=== PATIENT | female | born 1990 | race Caucasian/White ===

== ENCOUNTER 2017-02-19 06:10 | Emergency (ER) | payer OTHER ==
[~2017-02-19] VITALS: Ht 170.1 cm; Wt 125.6 kg
[~2017-02-19 06:10] MED LIST: AMOXIL500 MG PO; ATARAX25 MG PO; DICLEGIS DR 101 EACH PO; KEFLEX500 MG PO; MOTRIN800 MG PO; NKHM; NORCO 5-325 TA1 EACH PO; PEN-VEE K500 MG PO; PREDNISONE20 MG PO; PRENATAL1 TA3 PO; SEPTRA DS 800 M1 TAB PO; VICODIN 5/500 505 MG PO; VICODIN 500 MG-1 TAB PO
[2017-02-19 06:20] VITALS: BP 143/67
[2017-02-19 07:02] LABS: BASO % 0.4 % (0.0-1.0); EOS # 0.2 10*3/uL (0.0-0.4); EOS % 2.2 % (1.0-4.0); HEMATOCRIT 40.2 % (37.0-47.0); HEMOGLOBIN 13.1 g/dl (12.0-16.0); LYMPH # 2.6 10*3/uL (1.3-4.4); LYMPH % 28.9 % (27.0-41.0); MEAN CELL VOLUME 91.8 fl (81.0-99.0); MEAN CORPUSCULAR HGB 29.9 pg (27.0-31.0); MEAN CORPUSCULAR HGB CONC 32.6 g/dl (33.0-37.0); MEAN PLATELET VOLUME 10.5 fl (9.6-12.3); MONO # 0.5 10*3/uL (0.1-1.0); MONO % 5.6 % (3.0-9.0); NEUT # 5.7 10*3/uL (2.3-7.9); NEUT % 62.7 % (47.0-73.0); PLATELET COUNT AUTOMATED 300 10*3/uL (130-400); RED BLOOD COUNT 4.38 10*6/uL (4.10-5.10); RED CELL DISTRI WIDTH 12.7 % (0-14.5); WHITE BLOOD COUNT 9.1 10*3/uL (4.8-10.8)
[2017-02-19 07:17] LABS: ALBUMIN 3.7 gm/dl (3.1-4.5); ALKALINE PHOSPHATASE 98 U/L (45-117); BILIRUBIN, TOTAL 0.4 mg/dl (0.2-1.0); BUN 15 mg/dl (7-24); CARBON DIOXIDE 27 mmol/L (21-32); CHLORIDE 104 mmol/L (98-107); EST GLOM FILT AFRICAN AMERICAN > 60 ml/min; GLUCOSE 96 mg/dL (65-99); POTASSIUM 4.2 mmol/L (3.5-5.1); SGOT/AST 24 IU/L (3-35); SGPT/ALT 55 U/L (12-78); SODIUM 139 mmol/L (136-145); TOTAL PROTEIN 7.8 gm/dL (6.4-8.2)
[2017-02-19] MEDS ORDERED: Motrin,Rufen800 MG PO (08:25)
[2017-02-19] MEDS ORDERED: KEFLEX500 M1 PO (08:25)
[2017-02-19] MEDS ORDERED: BACTRIM DS 8001 TAB PO (08:25)
== END 2017-02-19 08:29 | disposition home or self-care (01) ==
LOC: ED 06:10
PROVIDERS: Emergency Medicine
DX: L02.31 Cutaneous abscess of buttock (principal)

== ENCOUNTER 2017-02-23 21:43 | Emergency (ER) | payer OTHER ==
[~2017-02-23] VITALS: Ht 170.1 cm; Wt 1259.6 kg
[~2017-02-23 21:43] MED LIST changes: +BACTRIM DS 8001 TAB PO; +KEFLEX500 M1 PO; +Motrin,Rufen800 MG PO
[2017-02-23 22:13] VITALS: BP 119/70
[2017-02-23 23:05] LABS: BASO % 0.3 % (0.0-1.0); EOS # 0.2 10*3/uL (0.0-0.4); EOS % 1.8 % (1.0-4.0); HEMATOCRIT 38.4 % (37.0-47.0); HEMOGLOBIN 12.7 g/dl (12.0-16.0); LYMPH # 1.2 10*3/uL (1.3-4.4); LYMPH % 11.8 % (27.0-41.0); MEAN CELL VOLUME 92.5 fl (81.0-99.0); MEAN CORPUSCULAR HGB 30.6 pg (27.0-31.0); MEAN CORPUSCULAR HGB CONC 33.1 g/dl (33.0-37.0); MEAN PLATELET VOLUME 10.1 fl (9.6-12.3); MONO # 0.5 10*3/uL (0.1-1.0); MONO % 4.8 % (3.0-9.0); NEUT # 8.3 10*3/uL (2.3-7.9); NEUT % 80.9 % (47.0-73.0); PLATELET COUNT AUTOMATED 346 10*3/uL (130-400); RED BLOOD COUNT 4.15 10*6/uL (4.10-5.10); RED CELL DISTRI WIDTH 12.7 % (0-14.5); WHITE BLOOD COUNT 10.3 10*3/uL (4.8-10.8)
[2017-02-23 23:14] LABS: PROTHROMBIN TIME 10.5 SECONDS (9.0-12.4)
[2017-02-23 23:22] LABS: ALBUMIN 3.5 gm/dl (3.1-4.5); ALKALINE PHOSPHATASE 176 U/L (45-117); BILIRUBIN, TOTAL 0.5 mg/dl (0.2-1.0); BUN 12 mg/dl (7-24); CARBON DIOXIDE 26 mmol/L (21-32); CHLORIDE 104 mmol/L (98-107); CKMB 0.7 ng/ml (0.5-3.6); CPK 93 U/L (26-192); EST GLOM FILT AFRICAN AMERICAN > 60 ml/min; GLUCOSE 96 mg/dL (65-99); LDH 234 U/L (84-246); MAGNESIUM 2.1 mg/dL (1.5-2.1); POTASSIUM 4.2 mmol/L (3.5-5.1); SGOT/AST 80 IU/L (3-35); SGPT/ALT 72 U/L (12-78); SODIUM 139 mmol/L (136-145); TOTAL PROTEIN 7.8 gm/dL (6.4-8.2)
[2017-02-23 23:25] LABS: TROPONIN I < 0.015 ng/ml (<0.045)
[2017-02-23] MEDS ORDERED: NAPROSYN500 MG PO (23:36)
[2017-02-23] MEDS ORDERED: CYCLOBENZAPRINE5 M3 PO (23:36)
== END 2017-02-24 00:12 | disposition home or self-care (01) ==
LOC: ED 21:43
PROVIDERS: Physician Assistant
DX: M54.6 Pain in thoracic spine (principal); R07.89 Other chest pain; R06.02 Shortness of breath

== ENCOUNTER → 2017-03-19 | Outpatient (CLI) | payer OTHER ==
[~2017-03-19] MED LIST changes: +CYCLOBENZAPRINE5 M3 PO; +NAPROSYN500 MG PO
[2017-03-19 17:04] LABS: ALBUMIN 4.1 gm/dl (3.1-4.5); BILIRUBIN, DIRECT 0.1 mg/dL (0.0-0.2); BILIRUBIN, TOTAL 0.6 mg/dl (0.2-1.0); TOTAL PROTEIN 8.5 gm/dL (6.4-8.2)
[2017-03-20 06:15] LABS: HEPATITIS C VIRUS ANTIBODY <0.1 s/co (0.0-0.9)
== END | disposition home or self-care (01) ==
LOC: LAB 15:49 → US 18:00
PROVIDERS: Nurse Practitioner Family
DX: K80.20 Calculus of gallbladder without cholecystitis without obstruction (principal); K76.0 Fatty (change of) liver, not elsewhere classified; E66.9 Obesity, unspecified; R53.83 Other fatigue; L83 Acanthosis nigricans

== ENCOUNTER 2017-04-12 20:40 | Emergency (ER) | payer OTHER ==
[~2017-04-12] VITALS: Ht 167.6 cm; Wt 127.0 kg
[2017-04-12 20:57] VITALS: BP 124/67
[2017-04-12 21:32] LABS: BASO % 0.4 % (0.0-1.0); EOS # 0.1 10*3/uL (0.0-0.4); EOS % 1.6 % (1.0-4.0); HEMATOCRIT 37.3 % (37.0-47.0); HEMOGLOBIN 12.4 g/dl (12.0-16.0); LYMPH # 2.1 10*3/uL (1.3-4.4); LYMPH % 26.4 % (27.0-41.0); MEAN CELL VOLUME 90.1 fl (81.0-99.0); MEAN CORPUSCULAR HGB CONC 33.2 g/dl (33.0-37.0); MEAN PLATELET VOLUME 9.7 fl (9.6-12.3); MONO # 0.5 10*3/uL (0.1-1.0); MONO % 6.3 % (3.0-9.0); NEUT # 5.2 10*3/uL (2.3-7.9); PLATELET COUNT AUTOMATED 290 10*3/uL (130-400); RED BLOOD COUNT 4.14 10*6/uL (4.10-5.10); RED CELL DISTRI WIDTH 13.2 % (0-14.5); WHITE BLOOD COUNT 7.9 10*3/uL (4.8-10.8)
[2017-04-12 21:48] LABS: ALBUMIN 3.7 gm/dl (3.1-4.5); ALKALINE PHOSPHATASE 88 U/L (45-117); BUN 14 mg/dl (7-24); CHLORIDE 104 mmol/L (98-107); CREATININE 0.69 mg/dL (0.55-1.02); LIPASE 209 U/L (73-393); MAGNESIUM 2.2 mg/dL (1.5-2.1); POTASSIUM 3.9 mmol/L (3.5-5.1); SGOT/AST 68 IU/L (3-35); SGPT/ALT 74 U/L (12-78); SODIUM 139 mmol/L (136-145); TOTAL PROTEIN 7.7 gm/dL (6.4-8.2)
[2017-04-12 21:50] LABS: B-hCG (QUALITATIVE) NEGATIVE (NEGATIVE)
[2017-04-12 21:59] LABS: BILIRUBIN NEGATIVE (NEGATIVE); BLOOD 3+ (NEGATIVE); CLARITY CLEAR (CLEAR); COLOR YELLOW (YELLOW); GLUCOSE NEGATIVE (NEGATIVE); KETONE NEGATIVE (NEGATIVE); LEUKO ESTERASE 1+ (NEGATIVE); NITRITE NEGATIVE (NEGATIVE); SPECIFIC GRAVITY >= 1.030 (1.005-1.030)
[2017-04-12 22:08] LABS: BACTERIA 1+; EPITHELIAL CELLS 0-2; RBC 21-30 rbc/hpf (0-2)
[2017-04-12] MEDS ORDERED: MACROBID100 M1 PO (23:06)
[2017-04-12] MEDS ORDERED: REGLAN5 MG PO (23:06)
[2017-04-12] MEDS ORDERED: ULTRAM50 MG PO (23:06)
== END 2017-04-12 23:34 | disposition home or self-care (01) ==
LOC: ED 20:40
PROVIDERS: Emergency Medicine Emergency Medical Services
DX: S30.0XXA Contusion of lower back and pelvis, initial encounter (principal); N39.0 Urinary tract infection, site not specified; R31.9 Hematuria, unspecified; K80.20 Calculus of gallbladder without cholecystitis without obstruction; K80.50 Calculus of bile duct without cholangitis or cholecystitis without obstruction; Z87.19 Personal history of other diseases of the digestive system; W18.39XA Other fall on same level, initial encounter; Y93.9 Activity, unspecified; Y92.9 Unspecified place or not applicable; Y99.9 Unspecified external cause status

== ENCOUNTER → 2017-04-19 | Outpatient (CLI) | payer OTHER ==
[~2017-04-19] MED LIST changes: +MACROBID100 M1 PO; +REGLAN5 MG PO; +ULTRAM50 MG PO
[2017-04-19 16:22] LABS: ALBUMIN 3.9 gm/dl (3.1-4.5); BILIRUBIN, DIRECT 0.2 mg/dL (0.0-0.2); TOTAL PROTEIN 8.1 gm/dL (6.4-8.2)
== END | disposition home or self-care (01) ==
LOC: LAB 15:13
PROVIDERS: Nurse Practitioner Family
DX: K76.0 Fatty (change of) liver, not elsewhere classified (principal)

== ENCOUNTER → 2017-05-11 | Day surgery (SDC) | payer OTHER ==
[2017-05-06 10:11] VITALS: BP 132/78
[~2017-05-11] VITALS: Ht 167.6 cm; Wt 128.4 kg
[~2017-05-11] MED LIST changes: +TRAMADOL HCL50 MG PO; +VITAMIN E200 UNI1 PO
[2017-05-11 06:45] VITALS: BP 125/71
[2017-05-11 09:30] VITALS: BP 121/63
[2017-05-11 09:45] VITALS: BP 108/53
[2017-05-11 10:00] VITALS: BP 117/64
[2017-05-11 10:14] VITALS: BP 117/64
[2017-05-11 10:33] VITALS: BP 141/82
== END | disposition home or self-care (01) ==
LOC: SDC 04-30 09:30
DX: K80.10 Calculus of gallbladder with chronic cholecystitis without obstruction (principal); Z98.890 Other specified postprocedural states

== ENCOUNTER 2017-06-22 18:32 | Emergency (ER) | payer OTHER ==
[~2017-06-22] VITALS: Ht 167.6 cm; Wt 127.0 kg
[2017-06-22 18:38] VITALS: BP 118/78
[2017-06-22] MEDS ORDERED: SEPTDS PO (19:12)
== END 2017-06-22 19:15 | disposition home or self-care (01) ==
LOC: ED 18:32
DX: L02.412 Cutaneous abscess of left axilla (principal); Z86.14 Personal history of Methicillin resistant Staphylococcus aureus infection

== ENCOUNTER → 2017-06-24 | Outpatient (CLI) | payer OTHER ==
[~2017-06-24] MED LIST changes: +SEPTDS PO
== END | disposition home or self-care (01) ==
LOC: WOUNDCARE 01:07
DX: L02.412 Cutaneous abscess of left axilla (principal); L73.2 Hidradenitis suppurativa

== ENCOUNTER 2017-06-25 19:52 | Emergency (ER) | payer OTHER ==
[~2017-06-25] VITALS: Ht 167.6 cm; Wt 125.6 kg
[2017-06-25 20:02] VITALS: BP 129/85
== END 2017-06-25 20:13 | disposition home or self-care (01) ==
LOC: ED 19:52
DX: Z48.01 Encounter for change or removal of surgical wound dressing (principal); L02.412 Cutaneous abscess of left axilla; R03.0 Elevated blood-pressure reading, without diagnosis of hypertension; Z79.899 Other long term (current) drug therapy

== ENCOUNTER 2017-06-27 14:11 | Emergency (ER) | payer OTHER ==
[~2017-06-27] VITALS: Ht 167.6 cm; Wt 125.6 kg
[2017-06-27 14:17] VITALS: BP 120/53
== END 2017-06-27 15:24 | disposition home or self-care (01) ==
LOC: ED 14:11
DX: L02.412 Cutaneous abscess of left axilla (principal); Z79.899 Other long term (current) drug therapy

== ENCOUNTER → 2017-06-29 | Outpatient (CLI) | payer OTHER | END | disposition home or self-care (01) | LOC: WOUNDCARE 01:10 | DX: L02.412 Cutaneous abscess of left axilla (principal); L73.2 Hidradenitis suppurativa ==

== ENCOUNTER → 2017-07-06 | Outpatient (CLI) | payer OTHER | END | disposition home or self-care (01) | LOC: WOUNDCARE 01:49 | DX: L02.412 Cutaneous abscess of left axilla (principal); L73.2 Hidradenitis suppurativa ==

== ENCOUNTER → 2017-07-13 | Outpatient (CLI) | payer OTHER | END | disposition home or self-care (01) | LOC: WOUNDCARE 04:03 | DX: L02.412 Cutaneous abscess of left axilla (principal); L73.2 Hidradenitis suppurativa ==

== ENCOUNTER → 2017-07-22 | Outpatient (CLI) | payer OTHER | END | disposition home or self-care (01) | LOC: WOUNDCARE 00:13 | DX: L02.412 Cutaneous abscess of left axilla (principal); L73.2 Hidradenitis suppurativa ==

== ENCOUNTER → 2017-07-29 | Outpatient (CLI) | payer OTHER | END | disposition home or self-care (01) | LOC: WOUNDCARE 08:56 | DX: L02.412 Cutaneous abscess of left axilla (principal); L73.2 Hidradenitis suppurativa ==

== ENCOUNTER → 2017-08-05 | Outpatient (CLI) | payer OTHER | END | disposition home or self-care (01) | LOC: WOUNDCARE 01:15 | DX: L02.412 Cutaneous abscess of left axilla (principal); L73.2 Hidradenitis suppurativa ==

== ENCOUNTER → 2017-08-19 | Outpatient (CLI) | payer OTHER | END | disposition home or self-care (01) | LOC: WOUNDCARE 01:24 | DX: L02.412 Cutaneous abscess of left axilla (principal); L73.2 Hidradenitis suppurativa ==

== ENCOUNTER → 2017-09-07 | Outpatient (CLI) | payer OTHER | END | disposition home or self-care (01) | LOC: WOUNDCARE 08:21 | DX: L02.412 Cutaneous abscess of left axilla (principal); L73.2 Hidradenitis suppurativa ==

== ENCOUNTER 2017-09-22 07:32 | Emergency (ER) | payer OTHER ==
[~2017-09-22] VITALS: Wt 129.3 kg
[2017-09-22 07:56] LABS: BASO % 0.5 % (0.0-1.0); EOS # 0.2 10*3/uL (0.0-0.4); EOS % 1.7 % (1.0-4.0); HEMATOCRIT 42.8 % (37.0-47.0); HEMOGLOBIN 14.4 g/dl (12.0-16.0); LYMPH # 0.5 10*3/uL (1.3-4.4); LYMPH % 5.2 % (27.0-41.0); MEAN CELL VOLUME 87.7 fl (81.0-99.0); MEAN CORPUSCULAR HGB 29.5 pg (27.0-31.0); MEAN CORPUSCULAR HGB CONC 33.6 g/dl (33.0-37.0); MEAN PLATELET VOLUME 10.5 fl (9.6-12.3); MONO # 0.5 10*3/uL (0.1-1.0); MONO % 5.5 % (3.0-9.0); NEUT # 7.6 10*3/uL (2.3-7.9); NEUT % 86.9 % (47.0-73.0); PLATELET COUNT AUTOMATED 308 10*3/uL (130-400); RED BLOOD COUNT 4.88 10*6/uL (4.10-5.10); RED CELL DISTRI WIDTH 12.9 % (0-14.5); WHITE BLOOD COUNT 8.8 10*3/uL (4.8-10.8)
[2017-09-22 08:10] LABS: ALBUMIN 3.9 gm/dl (3.1-4.5); ALKALINE PHOSPHATASE 86 U/L (45-117); BUN 13 mg/dl (7-24); CHLORIDE 107 mmol/L (98-107); LIPASE 117 U/L (73-393); POTASSIUM 3.8 mmol/L (3.5-5.1); SGOT/AST 17 IU/L (3-35); SGPT/ALT 35 U/L (12-78); SODIUM 140 mmol/L (136-145); TOTAL PROTEIN 8.2 gm/dL (6.4-8.2)
[2017-09-22 08:13] LABS: B-hCG (QUALITATIVE) NEGATIVE (NEGATIVE)
[2017-09-22] MEDS ORDERED: ZOFRAN ODT4 MG SL (08:19)
[2017-09-22 08:48] VITALS: BP 120/68
== END 2017-09-22 09:08 | disposition home or self-care (01) ==
LOC: ED 07:32
PROVIDERS: Emergency Medicine
DX: K52.9 Noninfective gastroenteritis and colitis, unspecified (principal)

== ENCOUNTER → 2017-10-05 | Outpatient (CLI) | payer OTHER ==
[~2017-10-05] MED LIST changes: +ZOFRAN ODT4 MG SL
== END | disposition home or self-care (01) ==
LOC: WOUNDCARE 02:33
DX: L02.412 Cutaneous abscess of left axilla (principal); L02.411 Cutaneous abscess of right axilla; L73.2 Hidradenitis suppurativa; Z90.49 Acquired absence of other specified parts of digestive tract

== ENCOUNTER → 2017-10-19 | Outpatient (CLI) | payer OTHER | END | disposition home or self-care (01) | LOC: WOUNDCARE 04:16 | DX: S41.102D Unspecified open wound of left upper arm, subsequent encounter (principal); S41.101D Unspecified open wound of right upper arm, subsequent encounter; L73.2 Hidradenitis suppurativa; L02.412 Cutaneous abscess of left axilla; L02.411 Cutaneous abscess of right axilla ==

== ENCOUNTER → 2017-11-02 | Outpatient (CLI) | payer OTHER | END | disposition home or self-care (01) | LOC: WOUNDCARE 04:03 | DX: L02.411 Cutaneous abscess of right axilla (principal); S41.102D Unspecified open wound of left upper arm, subsequent encounter; L73.2 Hidradenitis suppurativa; Z90.49 Acquired absence of other specified parts of digestive tract; X58.XXXD Exposure to other specified factors, subsequent encounter ==

== ENCOUNTER → 2017-11-16 | Outpatient (CLI) | payer OTHER | END | disposition home or self-care (01) | LOC: WOUNDCARE 04:10 | DX: L73.2 Hidradenitis suppurativa (principal); L02.412 Cutaneous abscess of left axilla; L02.411 Cutaneous abscess of right axilla; Z90.49 Acquired absence of other specified parts of digestive tract ==

== ENCOUNTER → 2017-11-18 | Outpatient (CLI) | payer OTHER | END | disposition home or self-care (01) | LOC: WOUNDCARE 13:50 | DX: L02.412 Cutaneous abscess of left axilla (principal); L02.411 Cutaneous abscess of right axilla; L73.2 Hidradenitis suppurativa; Z90.49 Acquired absence of other specified parts of digestive tract ==

== ENCOUNTER → 2017-11-23 | Outpatient (CLI) | payer OTHER | END | disposition home or self-care (01) | LOC: WOUNDCARE 00:42 | DX: L02.412 Cutaneous abscess of left axilla (principal); L02.411 Cutaneous abscess of right axilla; L73.2 Hidradenitis suppurativa; Z90.49 Acquired absence of other specified parts of digestive tract ==

== ENCOUNTER → 2017-11-30 | Outpatient (CLI) | payer OTHER | END | disposition home or self-care (01) | LOC: WOUNDCARE 04:17 | DX: S41.102D Unspecified open wound of left upper arm, subsequent encounter (principal); S41.101D Unspecified open wound of right upper arm, subsequent encounter; L02.412 Cutaneous abscess of left axilla; L02.411 Cutaneous abscess of right axilla; L73.2 Hidradenitis suppurativa; X58.XXXD Exposure to other specified factors, subsequent encounter ==

== ENCOUNTER → 2017-12-07 | Outpatient (CLI) | payer OTHER | END | disposition home or self-care (01) | LOC: WOUNDCARE 08:29 | DX: S41.101D Unspecified open wound of right upper arm, subsequent encounter (principal); S41.102D Unspecified open wound of left upper arm, subsequent encounter; L02.412 Cutaneous abscess of left axilla; L02.411 Cutaneous abscess of right axilla; L73.2 Hidradenitis suppurativa; X58.XXXD Exposure to other specified factors, subsequent encounter ==

== ENCOUNTER → 2017-12-14 | Outpatient (CLI) | payer OTHER | END | disposition home or self-care (01) | LOC: WOUNDCARE 02:41 | DX: L02.411 Cutaneous abscess of right axilla (principal); L02.412 Cutaneous abscess of left axilla; L73.2 Hidradenitis suppurativa; Z90.49 Acquired absence of other specified parts of digestive tract ==

== ENCOUNTER → 2017-12-21 | Outpatient (CLI) | payer OTHER | END | disposition home or self-care (01) | LOC: WOUNDCARE 14:22 | DX: L02.412 Cutaneous abscess of left axilla (principal); L02.411 Cutaneous abscess of right axilla; L73.2 Hidradenitis suppurativa; Z90.49 Acquired absence of other specified parts of digestive tract ==

== ENCOUNTER → 2018-01-04 | Outpatient (CLI) | payer OTHER | END | disposition home or self-care (01) | LOC: WOUNDCARE 04:36 | DX: S41.102D Unspecified open wound of left upper arm, subsequent encounter (principal); S41.101D Unspecified open wound of right upper arm, subsequent encounter; L02.412 Cutaneous abscess of left axilla; L02.411 Cutaneous abscess of right axilla; L73.2 Hidradenitis suppurativa; X58.XXXD Exposure to other specified factors, subsequent encounter; Z90.49 Acquired absence of other specified parts of digestive tract ==

== ENCOUNTER → 2018-01-11 | Outpatient (CLI) | payer OTHER | END | disposition home or self-care (01) | LOC: WOUNDCARE 04:38 | DX: L02.412 Cutaneous abscess of left axilla (principal); L02.411 Cutaneous abscess of right axilla; L73.2 Hidradenitis suppurativa ==

== ENCOUNTER → 2018-01-18 | Outpatient (CLI) | payer OTHER | END | disposition home or self-care (01) | LOC: WOUNDCARE 00:22 | DX: S41.102D Unspecified open wound of left upper arm, subsequent encounter (principal); S41.101D Unspecified open wound of right upper arm, subsequent encounter; L02.412 Cutaneous abscess of left axilla; L02.411 Cutaneous abscess of right axilla; L73.2 Hidradenitis suppurativa; Z90.49 Acquired absence of other specified parts of digestive tract; X58.XXXD Exposure to other specified factors, subsequent encounter ==

== ENCOUNTER → 2018-01-26 | Outpatient (CLI) | payer OTHER | END | disposition home or self-care (01) | LOC: WOUNDCARE 15:11 | DX: L02.412 Cutaneous abscess of left axilla (principal); L02.411 Cutaneous abscess of right axilla; L98.491 Non-pressure chronic ulcer of skin of other sites limited to breakdown of skin; L73.2 Hidradenitis suppurativa; Z90.49 Acquired absence of other specified parts of digestive tract ==

== ENCOUNTER → 2018-02-01 | Outpatient (CLI) | payer OTHER | END | disposition home or self-care (01) | LOC: WOUNDCARE 00:23 | DX: S41.102D Unspecified open wound of left upper arm, subsequent encounter (principal); S41.101D Unspecified open wound of right upper arm, subsequent encounter; L73.2 Hidradenitis suppurativa; L02.411 Cutaneous abscess of right axilla; L02.412 Cutaneous abscess of left axilla; Z90.49 Acquired absence of other specified parts of digestive tract; X58.XXXD Exposure to other specified factors, subsequent encounter ==

== ENCOUNTER → 2018-02-08 | Outpatient (CLI) | payer OTHER | END | disposition home or self-care (01) | LOC: WOUNDCARE 03:20 | DX: L02.412 Cutaneous abscess of left axilla (principal); L02.411 Cutaneous abscess of right axilla; L73.2 Hidradenitis suppurativa; Z90.49 Acquired absence of other specified parts of digestive tract ==

== ENCOUNTER → 2018-02-15 | Outpatient (CLI) | payer OTHER | END | disposition home or self-care (01) | LOC: WOUNDCARE 03:33 | DX: L02.412 Cutaneous abscess of left axilla (principal); L02.411 Cutaneous abscess of right axilla; L73.2 Hidradenitis suppurativa; Z90.49 Acquired absence of other specified parts of digestive tract ==

== ENCOUNTER → 2018-03-04 | Outpatient (CLI) | payer OTHER | END | disposition home or self-care (01) | LOC: WOUNDCARE 04:06 | DX: L02.412 Cutaneous abscess of left axilla (principal); L02.411 Cutaneous abscess of right axilla; L73.2 Hidradenitis suppurativa; Z90.49 Acquired absence of other specified parts of digestive tract ==

== ENCOUNTER → 2018-04-08 | Outpatient (CLI) | payer OTHER | END | disposition home or self-care (01) | LOC: WOUNDCARE 13:29 | DX: L02.411 Cutaneous abscess of right axilla (principal); L02.412 Cutaneous abscess of left axilla; L73.2 Hidradenitis suppurativa; R21 Rash and other nonspecific skin eruption; S41.132D Puncture wound without foreign body of left upper arm, subsequent encounter; S41.131D Puncture wound without foreign body of right upper arm, subsequent encounter; X58.XXXD Exposure to other specified factors, subsequent encounter ==

== ENCOUNTER → 2018-04-25 | Outpatient (CLI) | payer OTHER | END | disposition home or self-care (01) | LOC: WOUNDCARE 13:54 | DX: L02.412 Cutaneous abscess of left axilla (principal); L02.411 Cutaneous abscess of right axilla; L73.2 Hidradenitis suppurativa; R21 Rash and other nonspecific skin eruption ==

== ENCOUNTER → 2018-05-03 | Outpatient (CLI) | payer OTHER | END | disposition home or self-care (01) | LOC: WOUNDCARE 00:35 | DX: L02.412 Cutaneous abscess of left axilla (principal); L02.411 Cutaneous abscess of right axilla; L73.2 Hidradenitis suppurativa ==

== ENCOUNTER → 2018-05-10 | Outpatient (CLI) | payer OTHER | END | disposition home or self-care (01) | LOC: WOUNDCARE 04:21 | DX: L73.2 Hidradenitis suppurativa (principal); Z90.49 Acquired absence of other specified parts of digestive tract ==

== ENCOUNTER → 2018-05-17 | Outpatient (CLI) | payer OTHER | END | disposition home or self-care (01) | LOC: WOUNDCARE 10:20 | DX: L73.2 Hidradenitis suppurativa (principal); Z90.49 Acquired absence of other specified parts of digestive tract ==

== ENCOUNTER → 2018-05-24 | Outpatient (CLI) | payer OTHER | END | disposition home or self-care (01) | LOC: WOUNDCARE 00:47 | DX: L73.2 Hidradenitis suppurativa (principal); Z90.49 Acquired absence of other specified parts of digestive tract ==

== ENCOUNTER → 2018-09-13 | Outpatient (CLI) | payer OTHER | END | disposition home or self-care (01) | LOC: WOUNDCARE 15:50 | DX: L73.2 Hidradenitis suppurativa (principal); L02.412 Cutaneous abscess of left axilla; L02.411 Cutaneous abscess of right axilla; Z90.49 Acquired absence of other specified parts of digestive tract ==

== ENCOUNTER 2021-11-21 09:53 | Emergency (ER) | payer OTHER ==
[2021-11-21 09:58] VITALS: BP 116/46
[2021-11-21] MEDS ORDERED: IBU800 M2 PO (10:14)
== END 2021-11-21 11:23 | disposition home or self-care (01) ==
LOC: ED 09:53
DX: S86.911A Strain of unspecified muscle(s) and tendon(s) at lower leg level, right leg, initial encounter (principal); X58.XXXA Exposure to other specified factors, initial encounter; Y93.89 Activity, other specified; Y92.89 Other specified places as the place of occurrence of the external cause; Y99.9 Unspecified external cause status

== ENCOUNTER → 2022-03-10 | Outpatient (CLI) | payer OTHER ==
[~2022-03-10] MED LIST changes: +IBU800 M2 PO
== END | disposition home or self-care (01) ==
LOC: RAD 13:21
PROVIDERS: ATTEND Chiropractor
DX: M43.8X7 Other specified deforming dorsopathies, lumbosacral region (principal); Z90.49 Acquired absence of other specified parts of digestive tract

== ENCOUNTER 2022-12-18 13:55 | Emergency (ER) | payer OTHER ==
[~2022-12-18] VITALS: Wt 144.7 kg
[2022-12-18 14:09] VITALS: BP 148/86
[2022-12-18] MEDS ORDERED: PREDNISONE20 M1 PO (14:50)
[2022-12-18] MEDS ORDERED: TRIDERM28.4 GM T (14:50)
[2022-12-18] MEDS ORDERED: BENADRYL ALLERG25 M5 PO (14:50)
[2022-12-18] MEDS ORDERED: PERMETHRIN60 GM T (14:50)
== END 2022-12-18 15:37 | disposition home or self-care (01) ==
LOC: ED 13:55
DX: R21 Rash and other nonspecific skin eruption (principal); Z98.890 Other specified postprocedural states; Z90.49 Acquired absence of other specified parts of digestive tract

== ENCOUNTER 2024-08-05 08:58 | Emergency (ER) | payer OTHER ==
[~2024-08-05] VITALS: Ht 167.6 cm; Wt 143.3 kg
[~2024-08-05 08:58] MED LIST changes: +BENADRYL ALLERG25 M5 PO; +PERMETHRIN60 GM T; +PREDNISONE20 M1 PO; +TRIDERM28.4 GM T
[2024-08-05 09:14] VITALS: BP 129/73
[2024-08-05] MEDS ORDERED: IBUPROFEN 800 MG TAB PO ONE (09:20)
[2024-08-05] MEDS ORDERED: TAMIFLU 75MG CA75 MG PO (10:40)
== END 2024-08-05 11:01 | disposition home or self-care (01) ==
LOC: ED 08:58
DX: J10.1 Influenza due to other identified influenza virus with other respiratory manifestations (principal); Z20.822 Contact with and (suspected) exposure to COVID-19; R00.0 Tachycardia, unspecified; Z90.49 Acquired absence of other specified parts of digestive tract; Z98.890 Other specified postprocedural states